=== PATIENT | male | born 1975 | race Caucasian/White ===

== ENCOUNTER → 2017-04-02 | Outpatient (CLI) | payer SELFPAY ==
[~2017-04-02] MED LIST: CIPRO 500MG TA500 MG PO; LOMOTIL 2.5MG.2.5 MG PO; PHENERGAN25 M3 PO; PRILOSEC20 M1 PO
== END ==
LOC: UTC.OUT 19:01
DX: Z02.4 Encounter for examination for driving license (principal)

== ENCOUNTER 2017-06-30 23:42 | Emergency (ER) | payer MEDICAID ==
[~2017-06-30] VITALS: Ht 180.3 cm; Wt 163.3 kg
[2017-07-01 00:18] LABS: HEMOGLOBIN 14.8 g/dL (14.1-18.0); LYMPH # 3.2 K/mm3 (0.7-4.5); LYMPH % 29.3 % (10-50)
--- NOTE | 2017-07-01 00:28 | Emergency Room Report ---
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 N Clinical Suspician of Infection? N Mental Status: 1 - Regular (Normal Baseline) Sepsis Risk:Low Sepsis Risk Have you (or family members/close friends) recently traveled outside the [place]? N If Yes, where/when: Have you had exposure to infectious disease within the past month? N TB? Other? Specify: Source patient, RN notes reviewed, family, old records Exam Limitations no limitations Comment pt with hx of sinus issues and dec acute nosebleed tonight with no trauma - has uncontrolled htn and uses asa- no sig nosebleed in past Cardiac Chest Pain Chest pain indicative of cardiac No Timing/Duration this evening Severity moderate ALLERGIES Coded Allergies: No Known Allergies (01/12/17) Home Medications Active Scripts Diphenoxylate W/ Atropine (Diphenoxylate-Atrop 2.5-0.025) 1 TAB PO Q6 #30 TAB Prov: 12/30/14 PROMETHAZINE HCL (Phenergan 25MG Tab (Geq)) 25 MG PO Q6HP PRN N/V #20 TAB Prov: 12/30/14 Ciprofloxacin HCl (Cipro 500MG TAB) 500 MG PO BID #20 TAB Prov: 01/12/17 Reported Medications OMEPRAZOLE MAGNESIUM (Prilosec 20MG) 20 MG PO DAILY History Medical History General CAD? No Angina: No [place]: No Hypertension? No Hyperlipidemia? No CHF? No COPD? No Asthma? No Anemia? No Hernia? No Thyroid Problems? No Hypothyroidism? No CVA? No Seizures? No Diabetes? No End Stage Renal Disease? No UTI? No Stones? No GB Disease: No Nephritic Syndrome? No Asplenia? No Hepatitis? No Sickle Cell Disease? No Arthritis? No Cataracts? No Glaucoma? No MRSA? No TB? No Cancer? No Immunization Hx DT/Tetanus > 10 Years Ago Surgical Hx Previous Surgery?Y APPY WISDOM TEETH Social History Smoking Hx Smoker: Former Smoker Tobacco: No Alcohol Alcohol: No Drugs none Review of Systems All Other Systems Reviewed and Negative Constitutional denies fever Eyes denies drainage ENT see HPI, epistaxis. denies: ear discharge, throat swelling. Respiratory denies cough, denies shortness of breath, denies wheezing Cardiovascular denies chest pain, denies syncope Gastrointestinal denies abdominal pain, denies diarrhea, denies vomiting Genitourinary denies: dysuria, frequency, hesitancy, hematuria. Musculoskeletal denies back pain, denies joint pain, denies joint swelling, denies neck pain Skin denies rash Psychiatric/Neurological denies headache, denies seizure Physical Exam Vital Signs Vital Signs Date Time Temp Pulse Resp B/P Pulse O2 O2 Flow FiO2 Ox Delivery Rate 07/01 0317 94 20 153/91 98 07/01 0225 92 20 164/106 94 07/01 0150 90 20 156/109 95 07/01 0109 96 18 173/116 96 07/01 0049 18 07/01 0039 95 18 167/108 96 07/01 0036 18 06/30 2344 105 14 174/99 96 - WBC >12,000 or <4,000 or 10% bands? 2 or more SIRS Criteria Met? B/P:153/91 MAP:124 Creatinine >2.0? UA output<0.5ml/kg/hr for 2 hrs? Platelet count >100,000? Lactate >2.0mmol/1? INR >1.2 or PTT > than 60 sec? Evidence of Organ Dysfunction? Provider documented clinical suspician of infection? N Sepsis Criteria Count: 1 Sepsis Risk: Low Sepsis Risk General Appearance no apparent distress Eye Exam - bilateral eye PERRL, bilateral eye EOMI Ear, Nose, Throat bleeding rt nares Neck supple Respiratory Status No: respiratory distress. 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 No Results/Orders Laboratory Tests 07/01/17 0000: Sodium 137, Potassium 3.9, Chloride 102, Carbon Dioxide 31, BUN 11, Creatinine 1.3, Estimated Creat Clear 173, Estimated GFR (MDRD) 61, Glucose 122 H, Calcium 8.9, Total Bilirubin 0.3, AST 18, ALT 37, Alkaline Phosphatase 118 H, Troponin I < 0.02, Total Protein 8.3 H, Albumin 3.7, Globulin 4.6 H, Albumin/Globulin Ratio 0.8 L, WBC 10.7, RBC 5.64, Hgb 14.8, Hct 45.0, MCV 79.7 L, RDW 14.5, Plt Count 383, MPV 7.1 L, Gran % 61.2, Gran # 6.6, Lymphocytes % 29.3, Monocytes % 6.3, Eosinophils % 2.4, Basophils % 0.8, Lymphocytes # 3.2, Monocytes # 0.7, Eosinophils # 0.3, Basophils # 0.1, PUBS MCHC 32.9, MCH 26.2 L Current Medication Orders Sig/Marcel Start time Last Medication Dose Route Stop Time Status Admin Enalaprilat 1.25 MG ONCE ONE 07/01 0300 DC 07/01 IV 07/01 030 0258 Enalaprilat 0 .STK-MED ONE 07/01 0258 DC IV Clonidine HCl 0 .STK-MED ONE 07/01 0134 DC .ROUTE Clonidine HCl 0.1 MG ONCE ONE 07/01 0130 DC 07/01 PO 07/01 013 0137 Lorazepam 0.5 MG ONCE ONE 07/01 0100 DC 07/01 IV 07/01 010 0049 Lorazepam 0 .STK-MED ONE 07/01 0032 DC .ROUTE Lorazepam 0.5 MG ONCE ONE 07/01 0030 DC 07/01 IV 07/01 0031 0036 Cocaine HCl 0 .STK-MED ONE 06/30 2357 DC .ROUTE Oxymetazoline HCl 0 .STK-MED ONE 06/30 2357 DC .ROUTE Cocaine HCl 4 ML ONCE ONE 06/30 2345 DC 07/01 TP 06/30 2346 0003 Oxymetazoline HCl 2 ML ONCE ONE 06/30 2345 DC 07/01 NS 06/30 2346 0003 Sodium Chloride 10 ML PRN PRN 06/30 2345 AC IV 07/01 2350 Orders Procedure Date/time Status IV SALINE LOCK 06/30 2350 Active TROPONIN I 06/30 2350 Complete COMPLETE METABOLIC PANEL 06/30 2350 Complete CBC WITH AUTO DIFF 09/19 2350 Complete CM/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 ST/Twave chgs XRAY/CT/US XRAY/CT/US XRAY chest XR interpretation by reviewed by me Xray Results abnormal (chronic changes ) Progress ED Progress Notes Date 07/01/17 Time 0350 Comment doing better Procedures Epistaxis Epistaxis care Type/contributing factors Present: Anterior bleed, Uncontrolled HTN, Takes ASA. No: Posterior bleed, Takes Plavix, Takes Coumadin, Other related hx/issues. Medications used Neosynephrine, Cocaine. No: Viscous Xylocaine. Treatment/care Anterior pack placed. Departure Departure Time of Disposition 0328 Disposition DC Home or Self Care(routine) Clinical Impression Primary Impression: Hypertensive emergency Secondary Impressions: Anterior epistaxis Condition STABLE Referrals Michael SENA,Jairon Jordan Patient Instructions DI for Nosebleed Additional Instructions see dr mary thursday 0830 am and see pcp about bp Discharge Counseling Counseled pt/family regarding diagnosis, test results, medications/RX, follow up needs Prescriptions Current Visit Scripts CEPHALEXIN (Keflex 500MG Capsule) 500 MG PO Q8H #21 CAP ED Critical Care Critical Care No at 0351
[2017-07-01 00:33] LABS: BUN 11 mg/dL (7-18)
[2017-07-01 00:34] LABS: GFR (ESTIMATED) 61 ML/MIN (>60)
[2017-07-01 04:05] VITALS: BP 153/91
== END 2017-07-01 04:06 | disposition home or self-care (01) ==
LOC: ER 23:42
PROVIDERS: Emergency Medicine
PROC: 2Y41X5Z Packing of Nasal Region using Packing Material (ICD-10-PCS; principal; 2017-06-30)
DX: R04.0 Epistaxis (principal); I16.1 Hypertensive emergency; I10 Essential (primary) hypertension; Z79.82 Long term (current) use of aspirin; Z87.891 Personal history of nicotine dependence